=== PATIENT | female | born 1950 | race Caucasian/White ===

== ENCOUNTER 2020-12-28 06:30 | Day surgery (SDC) | payer OTHER ==
[2020-12-27 12:34] LABS: Absolute Lymphocytes (CBC) 1.7 K/uL (0.7-4.9); Basophils % 0.5 % (0-1.3); Hematocrit 41.7 % (36.0-45.0); Lymphocytes % 16.6 % (15.3-44.8); MPV 12.4 fL (7.6-11.3); RBC Red Blood Cell Count 4.54 M/uL (3.86-4.86)
[2020-12-27 12:46] LABS: Protime INR 0.94
[2020-12-27 12:47] LABS: Potassium 4.3 mmol/L (3.5-5.1)
--- NOTE | 2020-12-27 14:46 | RAD REPORT ---
EXAM DESCRIPTION: Chato Salinas (2 Views)12/27/2020 12:58 pm CLINICAL HISTORY: Hypertension/cardiac catheterization preop COMPARISON: 2012 FINDINGS: The lungs appear clear of acute infiltrate. The heart is normal size IMPRESSION: No acute abnormalities displayed
[2020-12-28] MEDS ORDERED: NA CHLORIDE 0.9% 500 ML ONE (07:16)
[2020-12-28] MEDS ORDERED: MIDAZOLAM HCL 2 MG/2 ML INJ ONE ×2 (07:37→07:51)
[2020-12-28] MEDS ORDERED: NA CHLORIDE 0.9% 50 ML ONE (07:38)
[2020-12-28] MEDS ORDERED: FENTANYL CITR 100 MCG/2 ML ONE ×2 (07:38→07:51)
[2020-12-28] MEDS ORDERED: PRASUGREL (EFFIENT) 10 MG TAB ONE (08:22)
[2020-12-28 10:04] VITALS: TEMP 97.3
--- NOTE | 2020-12-28 12:02 | OP ---
Surgeon: Dallas Angel MD Gristmiller: Miguel Cervantes. The patient was brought to the cardiac cath lab technologist today as an outpatient because of chest pain and abnormal str ess test. In the cardiac cath lab technologist, she was prepped and draped in routine sterile fashion. Given Versed and fentanyl for sedation. A 6-Upper Sorbian sheath was introduced in the right common femoral artery [facility]. We did that using the Seldinger technique and 10 cc of xylocaine. Angiography there was normal . Angio-Seal was used to close the case. Tesfaye catheter; left and right were used to cannulate th e left main and right main respectively. She was found to have a normal RCA. She was found to have a normal circumflex, but she had about an 80% proximal LAD stenosis before the first diagonal. It wa s heavily calcified. We decided to intervene. An XB 3.5 LAD without side holes were used to cannula te the left main. A [place] wire was used to cross the lesion successfully. There was 0.014 wire. A 3.0 x 16 Synergy stent was deployed at 14 atmosphere with about 10% to 20% residual in the lesion at the mid circumflex. We decided to post dilate. A 3.0 x 12 noncompliant Emerge balloon was used to post dilate the stent at 18 atmosphere with 0% residual. The patient tolerated the procedure well. There were no complications. Blood Loss: 5 mL. Anesthesia: Total conscious sedation was 60 minutes. Postoperative Diagnosis: Coronary artery disease status post successful intervention of the LAD. The patient received aspirin, Angiomax, Effient during the procedure. Plan: To continue her medical regimen at home. We will probably increase her statin. We will put h er on Plavix in addition to her regular medication. She will be in the hospital for about 6-8 hours after the procedure and she will go home today and follow up in the office in the next 2 weeks. CRISTINA/DEVANG Voice ID: [id number] Report ID: [id number]
[2020-12-28 14:49] VITALS: O2SAT 100
--- NOTE | 2020-12-28 15:03 | EKG ---
Test Date: 2020-12-27 Test Time: 10:53:13 Affiliate Marketing Manager: MEASUREMENT RESULTS: Intervals: Rate: 71 KS: 138 QRSD: 74 QT: 384 QTc: 417 [place]: P: 47 KS: 138 QRS: -14 T: 41 INTERPRETIVE STATEMENTS: Normal sinus rhythm Minimal voltage criteria for LVH, may be normal variant Borderline ECG Compared to ECG 08/05/2013 13:06:07 No significant changes Electronically Signed On 12-28-20 15:01:57 CDT by Dallas Angel
[2020-12-28 15:37] VITALS: BP 138/54
== END 2020-12-28 15:35 | disposition home or self-care (01) ==
LOC: CCL 06:30
DX: I25.10 Atherosclerotic heart disease of native coronary artery without angina pectoris (principal); I35.1 Nonrheumatic aortic (valve) insufficiency; I10 Essential (primary) hypertension; E78.2 Mixed hyperlipidemia; K21.9 Gastro-esophageal reflux disease without esophagitis; Z82.49 Family history of ischemic heart disease and other diseases of the circulatory system
CPT/HCPCS: 93005; 85025; 80048; 36415; 85610; 85347 ×3; 85730; 71046; 93454; C1893; C1760; C1725; C1877; C9600; J2250 ×2; J3010; J0583; J7040

== ENCOUNTER 2022-11-20 00:39 | Emergency (ER) | payer OTHER ==
--- OUTSIDE RECORDS SUMMARY | 2022-11-20 00:43 | XMS REPORT | Continuity of Care Document ---
:1950 Author Organization [facility] t Address [address] [place] [address] Care Team Providers Name Role Phone DONNY HOUSE Primary Care Physician Unavailable JIMMY CARLOS Attending Clinician Unavailable Breanna HUMAN RESOURCES COORDINATORJimmy Chappell Attending Clinician RADIOLOGY Attending Clinician Unavailable Radiology Attending Clinician Unavailable CHRKERRY_Lux Attending Clinician Unavailable Doctor Unassigned, [place] Attending Clinician Unavailable Alley Vasquez MD Attending Clinician ALLEY VASQUEZ Attending Clinician Unavailable Noé Good Attending Clinician Noé SOLIMAN Attending Clinician Unavailable JIMMY CARLOS Admitting Clinician Unavailable DONNY HOUSE Admitting Clinician Unavailable NOEMÍ Admitting Clinician Unavailable Noé SOLIMAN Admitting Clinician Unavailable Payers Payer Name Policy Type Policy Number Effective Date Expiration Date S arpan [facility] [id number] 2020 [facility] 00:00:00 PPO [id number] 2021 00:00:00 [facility] [id number] (MEDICARE REPLACEMENT/[place] GE - PPO) Problems Condition Condition Condition Status Onset Resolution Last Treating Co mments Source Name Details Category Date Date Treatment Clinician Date No known No known Disease Unive rs active active ity of problems problems [facility] Allergies, Adverse Reactions, Alerts Allergy Allergy Status Severity Reaction(s) Onset Inactive Treating Comm ents Source Name Type Date Date Clinician NO KNOWN Drug Active Univers ALLERGIE Class ity of S [facility] Social History Social Habit Start Date Stop Date Quantity Comments Source Exposure to 2022-07-15 2022-07-25 [facility]event) [place] Alcohol intake 2022-07-25 2022-07-25 Lifetime University of 00:00:00 00:00:00 non-drinker [facility] (finding) [place] Tobacco use and 2021-09-30 2021-09-30 Smokeless tobacco Un iversity of exposure 00:00:00 00:00:00 non-user [facility] Sex Assigned At [birth year] Universit y of 00:00:00 00:00:00 [facility] Smoking Status Start Date Stop Date Source Never smoked tobacco [facility] Medications Ordered Filled Start Stop Current Ordering Indication Dosage Frequency Signature Comments Components Source Medication Medication Date Date Medication? Clinician (SIG) Name Name dexamethaso 2021-10 No 10mg 10 mg, Uni vers ne 0-07-25 Oral, ity of (DECADRON 16:15: 16:15 [place]CE, [place] 00 :00 dose, On Medic al injection Fri Branch 10 mg 07/25/22 at 1115, Routine ketorolac 2021-10 No 30mg 30 mg, Unive rs (TORADOL) 0-07-25 Intramuscu ity of injection 16:15: 15:20 lar, ONCE, [place] 30 mg 00 :00 1 dose, On Medical Fri Branch 07/25/22 at 1115, Routine ibuprofen 2021-10 Yes [id number] 600mg Take 1 Univers 600 mg 0-21 tablet by ity of tablet 00:00: mouth [place] 00 every 6 Medical (six) Branch hours as needed for Pain (scale 4-6). ondansetron 2020-10 Yes [id number] 4mg Take 1 Univers 4 mg 2-25 tablet by ity of disintegrat 00:00: mouth [place] ing tablet 00 every 4 Medica l (four) Branch hours as needed for Nausea and Vomiting (N/V). ondansetron 2020-10 Yes [id number] 4mg Take 1 Univers 4 mg 2-25 tablet by ity of disintegrat 00:00: mouth [place] ing tablet 00 every 4 Medica l (four) Branch hours as needed for Nausea and Vomiting (N/V). ondansetron 2020-10 Yes [id number] 4mg Take 1 Univers 4 mg 2-25 tablet by ity of disintegrat 00:00: mouth [place] ing tablet 00 every 4 Medica l (four) Branch hours as needed for Nausea and Vomiting (N/V). ondansetron 2020-10 Yes [id number] 4mg Take 1 Univers 4 mg 2-25 tablet by ity of disintegrat 00:00: mouth [place] ing tablet 00 every 4 Medica l (four) Branch hours as needed for Nausea and Vomiting (N/V). ondansetron 2020-10 Yes [id number] 4mg Take 1 Univers 4 mg 2-25 tablet by ity of disintegrat 00:00: mouth [place] ing tablet 00 every 4 Medica l (four) Branch hours as needed for Nausea and Vomiting (N/V). ondansetron 2020-10 Yes [id number] 4mg Take 1 Univers 4 mg 2-25 tablet by ity of disintegrat 00:00: mouth [place] ing tablet 00 every 4 Medica l (four) Branch hours as needed for Nausea and Vomiting (N/V). ondansetron 2020-10 Yes [id number] 4mg Take 1 Univers 4 mg 2-25 tablet by ity of disintegrat 00:00: mouth [place] ing tablet 00 every 4 Medica l (four) Branch hours as needed for Nausea and Vomiting (N/V). ondansetron 2020-10 Yes [id number] 4mg Take 1 Univers 4 mg 2-25 tablet by ity of disintegrat 00:00: mouth [place] ing tablet 00 every 4 Medica l (four) Branch hours as needed for Nausea and Vomiting (N/V). ondansetron 2020-10 Yes [id number] 4mg Take 1 Univers 4 mg 2-25 tablet by ity of disintegrat 00:00: mouth [place] ing tablet 00 every 4 Medica l (four) Branch hours as needed for Nausea and Vomiting (N/V). ondansetron 2020-10 Yes [id number] 4mg Take 1 Univers 4 mg 2-25 tablet by ity of disintegrat 00:00: mouth [place] ing tablet 00 every 4 Medica l (four) Branch hours as needed for Nausea and Vomiting (N/V). ondansetron 2020-10 Yes [id number] 4mg Take 1 Univers 4 mg 2-25 tablet by ity of disintegrat 00:00: mouth [place] ing tablet 00 every 4 Medica l (four) Branch hours as needed for Nausea and Vomiting (N/V). Vital Signs Vital Name Observation Time Observation Value Comments Source Heart rate 2022-07-25 16:01:26 57 /min Universi ty of [facility] Respiratory rate 2022-07-25 16:01:26 16 /min [facility] saturation in 2022-07-25 16:01:26 98 /min [facility] blood by [facility] Pulse oximetry Branch Systolic blood 2022-07-25 16:01:26 180 mm[Hg] Univer sity of [facility] Diastolic blood 2022-07-25 16:01:26 52 mm[Hg] [facility] Body temperature 2022-07-25 14:50:00 36.89 Elva [facility] Body height 2022-07-25 14:50:00 162.6 cm Universi ty [facility] Body weight 2022-07-25 14:50:00 68.04 kg Universi ty [facility] BMI 2022-07-25 14:50:00 25.75 kg/m2 Universi [facility] Systolic blood 2021-11-28 15:22:00 166 mm[Hg] Univer sity of [facility] Diastolic blood 2021-11-28 15:22:00 69 mm[facility]Hg[facility] 2021-11-28 15:21:00 65 /min Universi ty [facility] Body height 2021-11-28 15:21:00 162.6 cm Universi [facility] Body weight 2021-11-28 15:21:00 73.437 kg Universi ty [facility] BMI 2021-11-28 15:21:00 27.79 kg/m2 [facility] Oxygen saturation in 2021-11-28 15:21:00 99 /min University Arterial blood by [facility] Pulse oximetry Branch Procedures Procedure Date / Time Performed Performing Clinician Sourramya e CT LUMBAR SPINE WO 2022-07-25 15:47:09 Jimmy Carlos [facility] [place] [facility] Medical [facility] URINALYSIS 2022-07-25 15:18:00 Jimmy Carlos [facility] [place] [facility] CONSENT/REFUSAL FOR 2022-07-25 14:40:18 Doctor Unassigned, No Un iversity [facility] DIAGNOSIS AND Name Medical Branch TREATMENT XR LUMBAR SPINE 2 VW 2022-07-24 15:49:23 Donny House [facility] ity of [facility] EXTERNAL PROVIDER 2022-02-28 05:01:00 Doctor Unassigned, No [facility] [place] RECORDS Name Medical Branch PHYSICIAN ORDERS 2022-01-29 05:01:00 Doctor Unassigned, No [facility] [place] Name Medical Branch PHYSICIAN ORDERS 2021-12-30 05:01:00 Doctor Unassigned, No Unive rsity of [facility] Medical Branch REFERRAL- 2021-11-14 06:01:00 Doctor Unassigned, No Univer sity [facility] REQUEST/RESPONSE Name Medical Branch Encounters Start End Encounter Admission Attending Care Care Encounter Source Date/Time Date/Time Type Type Clinicians Facility Department ID 2022-07-25 2022-07-25 Emergency X BREANNA [facility] ERT [id number] Univers 09:47:00 11:56:00 JIMMY ity of [facility] 2022-07-25 2022-07-25 [facility] 1.2.840.114 [id number] Univers 09:47:00 11:56:00 Jimmy GRANT [id number] ity [facility] 4.2.7.2.686 [facility] [id number] [facility] 084 Branch 2022-07-24 2022-07-24 Outpatient R RADIOLOGY [facility] [id number] Univers 09:59:25 23:59:00 ity of [facility] 2022-07-24 2022-07-24 Hospital Radiology [facility] 1.2.840.114 [id number] Univers 09:59:25 23:59:00 Encounter [place] [id number] ity [facility] 4.2.7.2.686 [place] [id number] [facility] [address] [place] 2022-07-21 2022-07-21 Outpatient CHRETIEN_F [facility] [id number] [place] 00:00:00 00:00:00 1017 Commun i ty [facility]osp[facility] Clinics 2022-02-28 2022-02-28 Orders Doctor NANCI 1.2.840.114 [id number] Univers 00:00:00 00:00:00 Only Unassigned, JONNY 350.1.13.10 ity of [place] [facility] 4.2.7.2.686 Lonny as [id number] [address] 2022-02-19 2022-02-19 Telephone [facility] 1.2.840.114 [id number] Univers 00:00:00 00:00:00 BioSurplus [id number] it y [facility] 4.2.7.2.686 Lonny as OBED?BLEA [id number] [facility] [address] [place] MEDICAL OFFICE BUILDING 2022-01-29 2022-01-29 Orders Doctor NANCI 1.2.840.114 [id number] Univers 00:00:00 00:00:00 Only Unassigned, JONNY 350.1.13.10 ity of [place] [facility] 4.2.7.2.686 Lonny as [id number] [address] 2022-01-24 2022-01-24 Telephone [facility] 1.2.840.114 [id number] Univers 00:00:00 00:00:00 [employer]plus [id number] it y [facility] 4.2.7.2.686 Lonny as OBED?BLEA [id number] [facility] [address] [place] MEDICAL OFFICE BUILDING 2021-12-30 2021-12-30 Orders Doctor NANCI 1.2.840.114 [id number] Univers 00:00:00 00:00:00 Only Unassigned, JONNY 350.1.13.10 ity of [place] [facility] 4.2.7.2.686 Lonny as [id number] [address] 2021-12-27 2021-12-27 Telephone [facility] 1.2.840.114 [id number] Univers 00:00:00 00:00:00 Alley VELASQUEZ 350.1.13.10 it y of [place] 4.2.7.2.686 Lonny as OBED?BLEA [id number] [place] [address] [place] MEDICAL OFFICE [facility] 2021-12-03 2021-12-03 Telephone [facility] 1.2.840.114 [id number] Univers 00:00:00 00:00:00 Alley VELASQUEZ 350.1.13.10 it y of [place] 4.2.7.2.686 Lonny as OBED?BLEA [id number] [place] [address] [place] MEDICAL OFFICE [facility] 2021-11-28 2021-11-28 [facility] [id number] Univers 09:25:00 23:59:00 [facility] 2021-11-28 2021-11-28 Office [facility] [id number] Univers 09:30:00 12:14:10 Visit Alley VELASQUEZ 350.1.13.10 it y [facility] 4.2.7.2.686 Lonny as OBED?BLEA [id number] [place] [address] [facility] OFFICE [facility] 2021-11-28 2021-11-28 [facility] [id number] Univers 09:25:00 09:25:00 [facility] 2021-11-14 2021-11-14 Orders Doctor CHRISTINE 1.2.840.114 [id number] Univers 00:00:00 00:00:00 Only Unassigned, JONNY 350.1.13.10 ity of [place] [facility] 4.2.7.2.686 Lon[place] as [id number] [address] 2021-10-31 2021-10-31 [facility] [id number] Univers 10:00:00 23:59:00 [facility] 2021-10-31 2021-10-31 [facility] 1.2.840.114 [id number] Univers 10:00:00 23:59:00 Encounter Alley VELASQUEZ 350.1.13.10 ity of [place] 4.2.7.2.686 Lonny as OBED?BLEA [id number] [place] [address] [place] MEDICAL OFFICE [facility] 2021-10-31 2021-10-31 Office [facility] [id number] Univers 09:30:00 10:32:19 Visit Alley VELASQUEZ 350.1.13.10 it y of [place] 4.2.7.2.686 Lonny as OBED?BLEA [id number] [place] [address] [facility] OFFICE [facility] 2021-10-31 2021-10-31 [facility] [id number] Univers 09:30:00 10:32:19 [facility] 2021-09-30 2021-09-30 Outpatient R [facility] [id number] Univers 16:10:00 23:59:00 [facility] 2021-09-30 2021-09-30 [facility] 1.2.840.114 [id number] Univers 16:10:00 23:59:00 Encounter Alley VELASQUEZ 350.1.13.10 ity of [place] 4.2.7.2.686 Lonny as OBED?BLEA [id number] [place] [address] [facility] OFFICE [facility] 2021-09-30 2021-09-30 Office [facility] [id number] Univers 15:30:00 17:07:21 Visit Alley VELASQUEZ 350.1.13.10 it y of [place] 4.2.7.2.686 Lonny as OBED?BLEA [id number] [place] [address] [facility] OFFICE [facility] 2021-09-30 2021-09-30 [facility] [id number] Univers 15:30:00 17:07:21 [facility] 2021-09-27 2021-09-28 Emergency Noé Soliman [facility] 1.2.840.114 [id number] Univers 23:46:00 02:20:00 Anay GRANT 350.1.13.10 i [facility] 4.2.7.2.686 [facility] [id number] [address] 2021-09-27 2021-09-28 Emergency X Noé SOLIMAN [facility] ERT [id number] Univers 23:46:00 02:20:00 ity [facility] 2021-09-27 2021-09-28 Emergency X Noé SOLIMAN [facility] ERT [id number] Univers 23:46:00 02:20:00 [facility] 2017-04-21 2017-04-21 Outpatient MHIE MHIE [id number] [place] 10:30:00 10:30:00 05 natalya Bah 2017-04-21 2017-04-21 Outpatient MHIE MHIE [id number] [place] 10:30:00 10:30:00 05 natalya Bah 2016-11-25 2016-11-25 Outpatient MHIE MHIE [id number] [place] 10:30:00 10:30:00 04 natalya Bah 2016-11-25 2016-11-25 Outpatient MHIE MHIE [id number] [place] 10:30:00 10:30:00 04 natalya Bah 2016-06-17 2016-06-17 Outpatient MHIE MHIE [id number] [place] 10:45:00 10:45:00 03 natalya Bah 2016-06-17 2016-06-17 Outpatient MHIE MHIE [id number] [place] 10:45:00 10:45:00 03 natalya Bah 2016-04-18 2016-04-18 Outpatient MHIE MHIE [id number] [place] 10:45:00 10:45:00 02 natalya Bah 2016-04-18 2016-04-18 Outpatient MHIE MHIE [id number] [place] 10:45:00 10:45:00 02 natalya Bah 2015-10-25 2015-10-25 Outpatient MHIE MHIE [id number] [place] 10:45:00 10:45:00 01 natalya Bah 2015-10-25 2015-10-25 Outpatient MHIE MHIE [id number] [place] 10:45:00 10:45:00 01 natalya Bah 2015-06-14 2015-06-[address] [facility] [id number] 10:30:00 10:30:00 00 natalya Bah 2015-06-14 2015-06-[address] [facility] [id number] [facility] 10:30:00 10:30:00 00 natalya Bah Results This patient has no known results.
[2022-11-20 02:05] LABS: Absolute Lymphocytes (CBC) 1.6 K/uL (0.7-4.9); Hematocrit 37.8 % (36.0-45.0); Lymphocytes % 16.1 % (15.3-44.8); MCV 88.6 fL (80-100); MPV 10.9 fL (7.6-11.3); RBC Red Blood Cell Count 4.27 M/uL (3.86-4.86)
[2022-11-20 02:23] LABS: Potassium 3.7 mmol/L (3.5-5.1); Troponin High Sensitivity 8.9 pg/mL (<58.9)
--- NOTE | 2022-11-20 03:35 | EDPHYS ---
Physician Documentation [facility] Name: Radha Christianson Age: 72 yrs Sex: Female : 1950 Arrival Date: 11/20/2022 Time: 00:44 Bed 18 Private MD: ED Physician Suhas Mcguire HPI: 11/20 03:43 This 72 yrs old Female presents to ER via Wheelchair with complaints of High Blood kdr Pressure. 03:43 Patient states that since Thursday she has had high blood pressure with a systolic over kdr 200 from time to time. She saw her primary care (Dr. Ruff) on Thursday and had a medication change. Since then she has had some improvement but this evening noted that her pressure again was over 200 at home. She has had approximately 5 doses of the new medication regiment prescribed by Dr. Ruff. She denies any overt signs or symptoms of endorgan damage such as headache, chest pain, shortness of breath, back or pelvic pain. She otherwise has no focal complaint. She does not appear toxic and does not require emergent intervention on initial presentation. Onset: The symptoms/episode began/occurred gradually, 3 day(s) ago. Severity of symptoms: At their worst the symptoms were mild in the emergency department the symptoms are unchanged. The patient has not experienced similar symptoms in the past. The patient has been recently seen by a physician: the patient's primary care provider, Dr. Ruff. Historical: - Allergies: 00:58 No Known Allergies; kd3 - PMHx: 00:58 Hypertensive disorder; stent; Diverticulitis; breast cancer; kd3 01:00 acid reflux; herniated disc; kd3 - Immunization history:: Adult Immunizations up to date. - Social history:: Smoking status: Patient denies any tobacco usage or history of. ROS: 03:43 Constitutional: Negative for fever, chills, and weight loss, Eyes: Negative for injury, kdr pain, redness, and discharge, ENT: Negative for injury, pain, and discharge, Neck: Negative for injury, pain, and swelling, Cardiovascular: Negative for chest pain, palpitations, and edema, Respiratory: Negative for shortness of breath, cough, wheezing, and pleuritic chest pain, Abdomen/GI: Negative for abdominal pain, nausea, vomiting, diarrhea, and constipation, Back: Negative for injury and pain, : Negative for injury, bleeding, discharge, and swelling, MS/Extremity: Negative for injury and deformity, Skin: Negative for injury, rash, and discoloration, Neuro: Negative for headache, weakness, numbness, tingling, and seizure activity. Psych: Negative for depression, anxiety, suicide ideation, homicidal ideation, and hallucinations, Allergy/Immunology: Negative for hives, rash, and allergies, Endocrine: Negative for neck swelling, polydipsia, polyuria, polyphagia, and marked weight changes, Hematologic/Lymphatic: Negative for swollen nodes, abnormal bleeding, and unusual bruising. Exam: 03:43 Constitutional: This is a well developed, well nourished patient who is awake, alert, kdr and in no acute distress. Head/Face: Normocephalic, atraumatic. Eyes: Pupils equal round and reactive to light, extra-ocular motions intact. Lids and lashes normal. Conjunctiva and sclera are non-icteric and not injected. Cornea within normal limits. Periorbital areas with no swelling, redness, or edema. Neck: Trachea midline, no thyromegaly or masses palpated, and no cervical lymphadenopathy. Supple, full range of motion without nuchal rigidity, or vertebral point tenderness. No Meningismus. Chest/axilla: Normal chest wall appearance and motion. Nontender with no deformity. No lesions are appreciated. Cardiovascular: Regular rate and rhythm with a normal S1 and S2. No gallops, murmurs, or rubs. Normal PMI, no JVD. No pulse deficits. Respiratory: Lungs have equal breath sounds bilaterally, clear to auscultation and percussion. No rales, rhonchi or wheezes noted. No increased work of breathing, no retractions or nasal flaring. Abdomen/GI: Soft, non-tender, with normal bowel sounds. No distension or tympany. No guarding or rebound. No evidence of tenderness throughout. Back: No spinal tenderness. No costovertebral tenderness. Full range of motion. Skin: Warm, dry with normal turgor. Normal color with no rashes, no lesions, and no evidence of cellulitis. MS/ Extremity: Pulses equal, no cyanosis. Neurovascular intact. Full, normal range of motion. Neuro: Awake and alert, GCS 15, oriented to person, place, time, and situation. Cranial nerves II-XII grossly intact. Motor strength 5/5 in all extremities. Sensory grossly intact. Cerebellar exam normal. Normal gait. Psych: Awake, alert, with orientation to person, place and time. Behavior, mood, and affect are within normal limits. 03:43 Cardiovascular: Edema: 2+ edema to level of left midcalf, left ankle, left foot, left toes, right midcalf, right ankle, right foot and right toes. Vital Signs: 00:53 BP 195 / 62; Pulse 73; Resp 16; Temp 98.2(O); Pulse Ox 100% ; Weight 68.04 kg; Height 5 kd3 ft. 4 in. (162.56 cm); Pain 0/10; 02:04 BP 174 / 65; Pulse 63; Resp 14; Pulse Ox 98% on R/A; lg3 02:36 BP 161 / 55; Pulse 63; Resp 15 S; Pulse Ox 99% on R/A; lg3 04:03 BP 161 / 57; Pulse 64; Resp 17 S; Pulse Ox 99% on R/A; lg3 00:53 Body Mass Index 25.75 (68.04 kg, 162.56 cm) kd3 MDM: 03:34 Patient medically screened. kdr 03:43 Data reviewed: vital signs, nurses notes. Consideration of Admission/Observation kdr Patient was admitted/placed on observation. Patient continues to be asymptomatic in the ED and improved overall in her general sense of wellbeing. Her blood pressure also improved with a systolic of 155 at the time of discharge. 11/20 01:14 Order name: Basic Metabolic Panel; Complete Time: 02:53 kdr 11/20 01:14 Order name: CBC with Diff; Complete Time: 02:53 kdr 11/20 01:14 Order name: Troponin HS; Complete Time: 02:53 kdr 11/20 01:14 Order name: XRAY Chest (1 view) kdr 11/20 01:14 Order name: EKG; Complete Time: 01:15 kdr 11/20 01:14 Order name: Cardiac monitoring; Complete Time: 01:26 kdr 11/20 01:14 Order name: EKG - Nurse/Tech; Complete Time: 02:04 kdr 11/20 01:14 Order name: IV Saline Lock; Complete Time: 01:50 kdr 11/20 01:14 Order name: Labs collected and sent; Complete Time: 02:04 kdr 11/20 01:14 Order name: O2 Per Protocol; Complete Time: kdr 11/20 01:14 Order name: O2 Sat Monitoring; Complete Time: kdr Administered Medications: No medications were administered Disposition Summary: 11/20/22 03:34 Discharge Ordered Location: Home kdr Problem: an acute exacerbation kdr Symptoms: have improved kdr Condition: Stable kdr Diagnosis - Hypertensive heart disease without heart failure kdr Followup: kdr - With: Kassie Ruff MD - When: Today - Reason: If symptoms return, Further diagnostic work-up, Recheck today's complaints, Continuance of care, Re-evaluation by your physician Discharge Instructions: - Discharge Summary Sheet kdr - Hypertension, Adult, [id number] kdr Forms: - Medication Reconciliation Form kdr - Thank You Letter kdr Signatures: Dispatcher [employer] Suhas Jernigan MD MD kdr Haydee Salazar, RN RN kd3
--- NOTE | 2022-11-20 03:35 | ER ---
Nurse's Notes [facility] Name: Radha Christianson Age: 72 yrs Sex: Female : 1950 Arrival Date: 11/20/2022 Time: 00:44 Bed 18 Private MD: Diagnosis: Hypertensive heart disease without heart failure Presentation: 11/20 00:54 Chief complaint: Patient states: on Thursday morning i started to feel weird and my blood kd3 pressure was in the 200's. I got an appointment with Dr Ruff Thursday afternoon and he changed some of my blood pressure medications. I went home and a couple times since then i have had a blood pressure over 200. Today i called the ambulance and they advised me to come here to get checked out. Right now i don't feel quite right. Coronavirus screen: Vaccine status: Patient reports being unvaccinated. Ebola Screen: No symptoms or risks identified at this time. Initial Sepsis Screen: Does the patient meet any 2 criteria? No. Patient's initial sepsis screen is negative. Does the patient have a suspected source of infection? No. Patient's initial sepsis screen is negative. Risk Assessment: Do you want to hurt yourself or someone else? Patient reports no desire to harm self or others. Onset of symptoms was November 20, 2022. 00:54 Method Of Arrival: Wheelchair kd3 00:54 Acuity: JACINTO 3 kd3 Triage Assessment: 01:00 General: Appears in no apparent distress. Behavior is calm, cooperative. Pain: Denies kd3 pain. Historical: - Allergies: 00:58 No Known Allergies; kd3 - PMHx: 00:58 Hypertensive disorder; stent; Diverticulitis; breast cancer; kd3 01:00 acid reflux; herniated disc; kd3 - Immunization history:: Adult Immunizations up to date. - Social history:: Smoking status: Patient denies any tobacco usage or history of. Screenin:51 Abuse screen: Denies threats or abuse. Denies injuries from another. Nutritional ha1 screening: No deficits noted. Tuberculosis screening: No symptoms or risk factors identified. 02:07 [facility] ED Fall Risk Assessment (Adult) History of falling in the last 3 months, lg3 including since admission No falls in past 3 months (0 pts) Confusion or Disorientation No (0 pts). Assessment: 02:04 General: Appears in no apparent distress. comfortable, Behavior is calm, cooperative. lg3 Pain: Denies pain. Neuro: No deficits noted. Thurston Agitation-Sedation Scale (RASS): 0 - Alert and Calm Level of Consciousness is awake, alert, obeys commands, Oriented to person, place, time, situation. Cardiovascular: No deficits noted. Denies chest pain, shortness of breath, Capillary refill < 3 seconds Clubbing of nail beds is absent JVD is absent Patient's skin is warm and dry. Rhythm is sinus rhythm. Respiratory: No deficits noted. Airway is patent Trachea midline Respiratory effort is even, unlabored, Respiratory pattern is regular, symmetrical, Breath sounds are clear bilaterally. GI: No deficits noted. No signs and/or symptoms were reported involving the gastrointestinal system. Abdomen is round non-distended. : No deficits noted. No signs and/or symptoms were reported regarding the genitourinary system. EENT: No deficits noted. No signs and/or symptoms were reported regarding the EENT system. Derm: No deficits noted. No signs and/or symptoms reported regarding the dermatologic system. Skin is intact, is healthy with good turgor, Skin is dry, Skin is normal, Skin temperature is warm. Musculoskeletal: Circulation, motion, and sensation intact. Range of motion: intact in all extremities, Swelling present in right leg and left leg. Vital Signs: 00:53 BP 195 / 62; Pulse 73; Resp 16; Temp 98.2(O); Pulse Ox 100% ; Weight 68.04 kg; Height 5 kd3 ft. 4 in. (162.56 cm); Pain 0/10; 02:04 BP 174 / 65; Pulse 63; Resp 14; Pulse Ox 98% on R/A; lg3 02:36 BP 161 / 55; Pulse 63; Resp 15 S; Pulse Ox 99% on R/A; lg3 04:03 BP 161 / 57; Pulse 64; Resp 17 S; Pulse Ox 99% on R/A; lg3 00:53 Body Mass Index 25.75 (68.04 kg, 162.56 cm) kd3 ED Course: 00:44 Patient arrived in ED. ja2 00:55 Suhas Mcguire MD is Attending Physician. kdr 00:58 Triage completed. kd3 01:00 Arm band placed on left wrist. kd3 01:05 Taveras, Lynette, RN is Primary Nurse. lg3 01:36 XRAY Chest (1 view) In Process Unspecified. EDMS 01:40 Missed attempt(s): 20 gauge in left antecubital area. ha1 01:45 Inserted saline lock: 22 gauge in left forearm, using aseptic technique. ha1 02:07 Patient has correct armband on for positive identification. Placed in gown. Bed in low lg3 position. Call light in reach. Side rails up X 1. Client placed on continuous cardiac and pulse oximetry monitoring. NIBP monitoring applied. habitat biologist on. Door closed. Noise minimized. Warm blanket given. Family accompanied patient. 03:34 Kassie Ruff MD is Referral Physician. kdr 04:04 No provider procedures requiring assistance completed. IV discontinued, intact, lg3 bleeding controlled, No redness/swelling at site. Pressure dressing applied. Administered Medications: No medications were administered Medication: 02:07 VIS not applicable for this client. lg3 Outcome: 03:34 Discharge ordered by MD. kdr 04:04 Discharged to home ambulatory, with family. lg3 04:04 Condition: stable 04:04 Discharge instructions given to patient, Instructed on discharge instructions, follow up and referral plans. Demonstrated understanding of instructions, follow-up care. 04:04 Patient left the ED. lg3 Signatures: Dispatcher [employer] EDMS Suhas Mcguire MD MD kdr Lynette Taveras, RN RN lg3 Ora Bacon Kyli, RN RN kd3 Sis [place] RN RN ha1
[2022-11-20 04:11] VITALS: TEMP 98.2
[2022-11-20 04:13] VITALS: O2SAT 99
[2022-11-20 04:14] VITALS: BP 161/57
--- NOTE | 2022-11-20 11:51 | EKG ---
Test Date: 2022-11-20 Test Time: 02:01:55 Hogshead Liner: LAURA MEASUREMENT RESULTS: Intervals: Rate: 64 CA: 146 QRSD: 76 QT: 416 QTc: 429 Cord: P: 32 CA: 146 QRS: -22 T: 18 INTERPRETIVE STATEMENTS: Normal sinus rhythm Voltage criteria for left ventricular hypertrophy Abnormal ECG Compared to ECG 12/27/2020 10:53:13 No significant changes Electronically Signed On 11-20-22 11:50:48 BRICK [employer]ENEER MAKER by Dago Adams
--- NOTE | 2022-11-20 15:04 | RAD REPORT ---
EXAM DESCRIPTION: XR Chest, 1 View CLINICAL HISTORY: The patient is 72 years old and is Female; dizziness TECHNIQUE: Frontal view of the chest. COMPARISON: 10/19/2020 chest radiograph FINDINGS: LUNGS: Hazy medial right basilar opacities, atelectasis versus pneumonia. No other foca l consolidation. PLEURAL SPACE: No pleural effusion. No pneumothorax. HEART: See below. MEDIASTINUM: Prominence of the cardiomediastinal silhouette, likely exaggerated secondary to sarah ble technique, lordotic positioning, and patient body habitus. BONES/JOINTS: Dystrophic appearance of the right humeral neck, new from reference exam, favoring an age-indeterminate impacted fracture. IMPRESSION: 1. Hazy medial right basilar opacities, atelectasis versus pneumonia. No other focal c onsolidation. 2. Dystrophic appearance of the right humeral neck, favoring an age-indeterminate but presumably re mote fracture. Clinical correlation recommended. Electronically signed by: Ramiro Reyna MD 11/20/2022 1:54 AM SALES APPOINTMENT COORDINATOR Due to temporary technical issues with the PACS/Fluency reporting system, reports are being signed by the in house radiologists without review as a courtesy to insure prompt reporting. The interpreting radiologist is fully responsible for the content of the report.
== END 2022-11-20 04:04 | disposition home or self-care (01) ==
LOC: ER 00:39
DX: I11.9 Hypertensive heart disease without heart failure (principal); Z85.3 Personal history of malignant neoplasm of breast
CPT/HCPCS: 36415; 71045; 80048; 84484; 85025; 93005; 99284

== ENCOUNTER 2023-07-30 18:19 | Observation (INO) | payer OTHER ==
--- OUTSIDE RECORDS SUMMARY | 2023-07-30 19:21 | XMS REPORT | Continuity of Care Document ---
:1950 Author Organization [facility] t Address [address] [place] [address] [place] [id number] Care Team Providers Name Role Phone Abdi House Primary Care Physician Wiley Du Attending Clinician WILEY BAEZA Attending Clinician Unavailable Unknown, Attending Attending Clinician Unavailable Doctor Unassigned, [place] Attending Clinician Unavailable JIMMY CARLOS Attending Clinician Unavailable Jimmy Hearn Attending Clinician RADIOLOGY Attending Clinician Unavailable Radiology Attending Clinician Unavailable NOEMÍ Attending Clinician Unavailable Alley Vasquez MD Attending Clinician ALLEY VASQUEZ Attending Clinician Unavailable Noé Good Attending Clinician Noé SOLIMAN Attending Clinician Unavailable JIMMY CARLOS Admitting Clinician Unavailable ABDI HOUSE Admitting Clinician Unavailable NOEMÍ Admitting Clinician Unavailable Néo SOLIMAN Admitting Clinician Unavailable Payers Payer Name Policy Type Policy Number Effective Date Expiration Date S [facility] [id number] (MEDICARE REPLACEMENT/ADVANTAGE - PPO) Problems Condition Condition Condition Status Onset Resolution Last Treating Co mments Source Name Details Category Date Date Treatment Clinician Date No known No known Disease Unive rs active active ity of problems problems [facility] Allergies, Adverse Reactions, Alerts Allergy Allergy Status Severity Reaction(s) Onset Inactive Treating Comm ents Source Name Type Date Date Clinician NO KNOWN Drug Active Univers ALLERGIE Class ity of S [facility] Social History Social Habit Start Date Stop Date Quantity Comments Source Sexual orientation [facility] to 2022-11-27 2022-12-07 Not sure [facility]-CoV-2 (event) 00:00:00 09:12:00 [facility] History of Social 2021-09-30 2021-09-30 Univers ity of function 00:00:00 00:00:00 [facility] Tobacco use and 2021-09-30 2021-09-30 Smokeless Universit y of exposure 00:00:00 00:00:00 tobacco non-user [facility] Alcohol intake 2021-09-30 2021-09-30 Lifetime University of 00:00:00 00:00:00 non-drinker [facility] ([facility] [place] Sex Ass[birth year] At [birth year] Universit y of 00:00:00 00:00:00 [facility] Smoking Status Start Date Stop Date Source Never smoked tobacco [facility] Medications Ordered Filled Start Stop Current Ordering Indication Dosage Frequency Signature Comments Components Source Medication Medication Date Date Medication? Clinician (SIG) Name Name metroNIDAZO 2022- No [id number] 500mg Take 1 Univers LE (FLAGYL) 3-07 07-18 tablet by it y of 500 mg 00:00: 04:59 mouth [place] tablet 00 :00 every 12 Medical (twelve) Branch hours for 7 days. cephALEXin 2022- No [id number] 500mg Take 1 Univers 500 mg 12-07 capsule by ity of capsule 00:00: 04:59 mouth in [place] 00 :00 the Medical morning Branch and 1 capsule in the evening. Do all this for 7 days. cephALEXin 2022- No [id number] 500mg Take 1 Univers 500 mg 12-07 capsule by ity of capsule 00:00: 04:59 mouth in [place] 00 :00 the Medical morning Branch and 1 capsule in the evening. Do all this for 7 days. dexamethaso 2021-10- No 10mg 10 mg, Uni vers ne 0-07-25 Oral, ity of (DECADRON 16:15: 16:15 ONCE, 1 [place] PHOS[place] 00 :00 dose, On Medic al injection Fri Branch 10 mg 07/25/22 at 1115, Routine ketorolac 2021-10 30mg 30 mg, Unive rs (TORADOL) 007-25 Intramuscu ity of injection 16:15: 15:20 lar, ONCE, [place] 30 mg 00 :00 1 dose, On Medical Fri Branch 07/25/22 at 1115, Routine ibuprofen 2021-10 Yes [id number] 600mg Take 1 Univers 600 mg 0-21 tablet by ity of tablet 00:00: mouth [place] 00 every 6 Medical (six) Branch hours as needed for Pain (scale 4-6). ibuprofen 2021-10 Yes [id number] 600mg Take 1 Univers 600 mg 0-21 tablet by ity of tablet 00:00: mouth [place] 00 every 6 Medical (six) Branch hours as needed for Pain (scale 4-6). ibuprofen 2021-10 Yes [id number] 600mg Take 1 Univers 600 mg 0-21 tablet by ity of tablet 00:00: mouth [place] 00 every 6 Medical (six) Branch hours as needed for Pain (scale 4-6). ibuprofen 2021-10 Yes [id number] 600mg Take 1 Univers 600 mg 0-21 tablet by ity of tablet 00:00: mouth [place] 00 every 6 Medical (six) Branch hours as needed for Pain (scale 4-6). ondansetron 2020-10 Yes [id number] 4mg Take 1 Univers 4 mg 2-25 tablet by ity of disintegrat 00:00: mouth [place] ing tablet 00 every 4 Medica l (four) Branch hours as needed for Nausea and Vomiting (N/V). ondansetron 2020-10 Yes [id number] 4mg Take 1 Univers 4 mg 2-25 tablet by ity of disintegrat 00:00: mouth [place] ing tablet 00 every 4 Medica l (four) Branch hours as needed for Nausea and Vomiting (N/V). ondansetron 2020-10 Yes [id number] 4mg Take 1 Univers 4 mg 2-25 tablet by ity of disintegrat 00:00: mouth [place] ing tablet 00 every 4 Medica l (four) Branch hours as needed for Nausea and Vomiting (N/V). ondansetron 2020-10 Yes [id number] 4mg Take 1 Univers 4 mg 2-25 tablet by ity of disintegrat 00:00: mouth [place] ing tablet 00 every 4 Medica l (four) Branch hours as needed for Nausea and Vomiting (N/V). ondansetron 2020-10 Yes [id number] 4mg Take 1 Univers 4 mg 2-25 tablet by ity of disintegrat 00:00: mouth [place] ing tablet 00 every 4 Medica l (four) Branch hours as needed for Nausea and Vomiting (N/V). ondansetron 2020-10 Yes [id number] 4mg Take 1 Univers 4 mg 2-25 tablet by ity of disintegrat 00:00: mouth [place] ing tablet 00 every 4 Medica l (four) Branch hours as needed for Nausea and Vomiting (N/V). ondansetron 2020-10 Yes [id number] 4mg Take 1 Univers 4 mg 2-25 tablet by ity of disintegrat 00:00: mouth [place] ing tablet 00 every 4 Medica l (four) Branch hours as needed for Nausea and Vomiting (N/V). ondansetron 2020-10 Yes [id number] 4mg Take 1 Univers 4 mg 2-25 tablet by ity of disintegrat 00:00: mouth [place] ing tablet 00 every 4 Medica l (four) Branch hours as needed for Nausea and Vomiting (N/V). ondansetron 2020-10 Yes [id number] 4mg Take 1 Univers 4 mg 2-25 tablet by ity of disintegrat 00:00: mouth [place] ing tablet 00 every 4 Medica l (four) Branch hours as needed for Nausea and Vomiting (N/V). ondansetron 2020-10 Yes [id number] 4mg Take 1 Univers 4 mg 2-25 tablet by ity of disintegrat 00:00: mouth [place] ing tablet 00 every 4 Medica l (four) Branch hours as needed for Nausea and Vomiting (N/V). ondansetron 2020-10 Yes [id number] 4mg Take 1 Univers 4 mg 2-25 tablet by ity of disintegrat 00:00: mouth [place] ing tablet 00 every 4 Medica l (four) Branch hours as needed for Nausea and Vomiting (N/V). ondansetron 2020-10 Yes [id number] 4mg Take 1 Univers 4 mg 2-25 tablet by ity of disintegrat 00:00: mouth [place] ing tablet 00 every 4 Medica l (four) Branch hours as needed for Nausea and Vomiting (N/V). ondansetron 2020-10 Yes [id number] 4mg Take 1 Univers 4 mg 2-25 tablet by ity of disintegrat 00:00: mouth [place] ing tablet 00 every 4 Medica l (four) Branch hours as needed for Nausea and Vomiting (N/V). ondansetron 2020-10 Yes [id number] 4mg Take 1 Univers 4 mg 2-25 tablet by ity of disintegrat 00:00: mouth [place] ing tablet 00 every 4 Medica l (four) Branch hours as needed for Nausea and Vomiting (N/V). ondansetron 2020-10 Yes [id number] 4mg Take 1 Univers 4 mg 2-25 tablet by ity of disintegrat 00:00: mouth [place] ing tablet 00 every 4 Medica l (four) Branch hours as needed for Nausea and Vomiting (N/V). Vital Signs Vital Name Observation Time Observation Value Comments Source Systolic blood 2022-12-07 15:17:00 187 mm[Hg] [facility] Diastolic blood 2022-12-07 15:17:00 82 mm[Hg] [facility] Heart rate 2022-12-07 15:14:00 74 /min [facility] Body temperature 2022-12-07 15:14:00 37.22 [facility] Respiratory rate 2022-12-07 15:14:00 16 /[facility] height 2022-12-07 15:14:00 162.6 cm [facility] Body weight 2022-12-07 15:14:00 70.308 kg [facility] BMI 2022-12-07 15:14:00 26.61 kg/m2 [facility] Oxygen saturation in 2022-12-07 15:14:00 97 /min [facility] Arterial blood by [facility] Pulse oximetry Branch Systolic blood 2022-07-25 16:01:26 180 mm[Hg] [facility] Diastolic blood 2022-07-25 16:01:26 52 mm[Hg] Unive rsity of pressure [facility] Heart rate 2022-07-25 16:01:26 57 /min Universi ty of [facility] Respiratory rate 2022-07-25 16:01:26 16 /min Univ ersity of [facility] Oxygen saturation in 2022-07-25 16:01:26 98 /min University of Arterial blood by [facility] Pulse oximetry Branch Body temperature 2022-07-25 14:50:00 36.89 [place] Univ ersity of [facility] Body height 2022-07-25 14:50:00 162.6 cm Universi ty of [facility] Body weight 2022-07-25 14:50:00 68.04 kg Universi ty of [facility] BMI 2022-07-25 14:50:00 25.75 kg/m2 Universi ty [facility] Systolic blood 2021-11-28 15:22:00 166 mm[Hg] Univer sity of [facility] Diastolic blood 2021-11-28 15:22:00 69 mm[Hg] Unive rsity of [facility] Heart rate 2021-11-28 15:21:00 65 /min Universi ty of [place] [facility] [place] Body height 2021-11-28 15:21:00 162.6 cm Universi ty of [place] [facility] [place] Body weight 2021-11-28 15:21:00 73.437 kg Universi ty [facility] BMI 2021-11-28 15:21:00 27.79 kg/m2 Universi ty [facility] Oxygen saturation in 2021-11-28 15:21:00 99 /min University of Arterial blood by [facility] Pulse oximetry Branch Procedures Procedure Date / Time Performed Performing Clinician Sourc e POCT URINALYSIS 2022-12-07 15:17:00 Kelly Hernandez o yarely [facility] ASSIGNMENT OF BENEFITS 2022-12-07 15:04:02 Doctor Unassigned, No [facility] CT LUMBAR SPINE WO 2022-07-25 15:47:09 Jimmy [facility] URINALYSIS 2022-07-25 15:18:00 [facility] FOR 2022-07-25 14:40:18 Doctor Unassigned, No Un iversity [facility] [place] [facility] DIAGNOSIS AND Name Medical Branch TREATMENT XR LUMBAR SPINE 2 VW 2022-07-24 15:49:23 Abdi House ity of [facility] EXTERNAL PROVIDER 2022-02-28 05:01:00 Doctor Unassigned, No Univ ersity of [place] RECORDS Name Medical Branch PHYSICIAN ORDERS 2022-01-29 05:01:00 Doctor Unassigned, No Unive rsity of [place] Name Medical Branch PHYSICIAN ORDERS 2021-12-30 05:01:00 Doctor Unassigned, No Unive rsity of [facility] Medical Branch REFERRAL- 2021-11-14 06:01:00 Doctor Unassigned, No Univer sity [facility] [place] [facility] REQUEST/RESPONSE Name Medical [place] Encounters Start End Encounter Admission Attending Care Care Encounter Source Date/Time Date/Time Type Type Clinicians Facility Department ID 2022-12-10 2022-12-10 Telephone [facility] [id number] [facility] [place] [facility]00 [facility] 350.1.13.10 ity of [place] 4.2.7.2.686 Lonny as OBED?BLEA [id number] [address] MEDICAL OFFICE BUILDING 2022-12-07 2022-12-07 Outpatient [facility] [id number] Univers 09:00:00 09:42:46 WILEY barlowy o f [facility] 2022-12-07 2022-12-07 Urgent AramWiley pino [facility] 1.2.840 .114 [id number] Univers 09:00:00 09:42:46 Care Unknown, Attending [facility] 350.1.13.10 ity of [place] 4.2.7.2.686 [place] as OBED?BLEA [phone] [address] MEDICAL OFFICE BUILDING 2022-12-07 2022-12-07 Orders Doctor CHRISTINE [id number] [id number] Univers 00:00:00 00:00:00 Only Unassigned, JONNY 350.1.13.10 ity of [place] [facility] 4.2.7.2.686 Lonny as [id number] [facility] 009 Branch 2022-07-25 2022-07-25 Emergency X BREANNA, [facility] ERT [id number] Univers 09:47:00 11:56:00 FOLUSHO ity of [facility] 2022-07-25 2022-07-25 Emergency [facility] 1.2.840.114 [id number] Univers 09:47:00 11:56:00 Folusho F RUDY 350.1.13.10 ity of [place] 4.2.7.2.686 [facility] [id number] [facility] 084 Branch 2022-07-24 2022-07-24 Outpatient R RADIOLOGY [facility] [id number] Univers 09:59:25 23:59:00 ity of [facility] 2022-07-24 2022-07-24 Hospital Radiology [facility] 1.2.840.114 [id number] Univers 09:59:25 23:59:00 Encounter RUDY 350.1.13.10 [facility] 4.2.7.2.686 [facility] [phone] [facility] 807 Branch 2022-07-21 2022-07-21 Outpatient CHRETIEN_F [facility] [address] [place] 00:00:00 00:00:00 1017 [facility] 2022-02-28 2022-02-28 Orders Doctor CHRISTINE 1.2.840.114 [id number] Univers 00:00:00 00:00:00 Only Unassigned, JONNY 350.1.13.10 ity of [place] [facility] 4.2.7.2.686 Lonny as [id number] [facility] 009 Branch 2022-02-19 2022-02-19 Telephone Pedro [facility] 1.2.840.114 [id number] Univers 00:00:00 00:00:00 Alley [facility] 350.1.13.10 it y of [place] 4.2.7.2.686 [place] as OBED?BLEA [id number] [address] MEDICAL OFFICE BUILDING 2022-01-29 2022-01-29 Orders Doctor CHRISTINE 1.2.840.114 [id number] Univers 00:00:00 00:00:00 Only Unassigned, JONNY 350.1.13.10 ity of [place] [facility] 4.2.7.2.686 Lon[place] as [id number] [address] 2022-01-24 2022-01-24 Telephone [facility] 1.2.840.114 [id number] Univers 00:00:00 00:00:00 Alley Fang HEALTH 350.1.13.10 it y of [place] 4.2.7.2.686 [place] as OBED?BLEA [phone] [address] MEDICAL OFFICE BUILDING 2021-12-30 2021-12-30 Orders Doctor NANCI 1.2.840.114 [id number] Univers 00:00:00 00:00:00 Only Unassigned, JONNY 350.1.13.10 ity of [place] [facility] 4.2.7.2.686 Lonny as [id number] [address] 2021-12-27 2021-12-27 Telephone [facility] 1.2.840.114 [id number] Univers 00:00:00 00:00:00 Alley Fang HEALTH 350.1.13.10 it y of [place] 4.2.7.2.686 [place] as OBED?BLEA [id number] [address] MEDICAL OFFICE [facility] 2021-12-03 2021-12-03 Telephone [facility] 1.2.840.114 [id number] Univers 00:00:00 00:00:00 Alley Fang HEALTH 350.1.13.10 it y of [place] 4.2.7.2.686 Lon[place] as OBED?BLEA [id number] [facility] [address] [place] MEDICAL OFFICE BUILDING 2021-11-28 2021-11-28 [facility] [id number] Univers 09:25:00 23:59:00 ALLEY itrosalva of [facility] 2021-11-28 2021-11-28 Office [facility] [id number] Univers 09:30:00 12:14:10 Visit Alley Fang HEALTH 350.1.13.10 it y of [place] 4.2.7.2.686 [place] as OBED?BLEA [id number] Me dicellie [address] [address] [place] MEDICAL OFFICE [facility] 2021-11-28 2021-11-28 Outpatient [facility] [id number] Univers 09:25:00 09:25:00 ALLEY itrosalva [facility] 2021-11-14 2021-11-14 Orders Doctor NANCI 1.2.840.114 [id number] Univers 00:00:00 00:00:00 Only Unassigned, JONNY 350.1.13.10 ity of [place] [facility] 4.2.7.2.686 Lon[place] as [phone] [address] 2021-10-31 2021-10-31 Outpatient [facility] [id number] Univers 10:00:00 23:59:00 [facility] 2021-10-31 2021-10-31 Hospital [facility] 1.2.840.114 [id number] Univers 10:00:00 23:59:00 Encounter Alley Fang [facility] 350.1.13.10 ity of [place] 4.2.7.2.686 Lon[place] as OBED?BLEA [id number] Pa stephon [address] [place] MEDICAL OFFICE [facility] 2021-10-31 2021-10-31 Office [facility] [id number] Univers 09:30:00 10:32:19 Visit Alley Fang [facility] 350.1.13.10 it [facility] 4.2.7.2.686 [place] as OBED?BLEA [id number] Me dicellie [address] [place] MEDICAL OFFICE [facility] 2021-10-31 2021-10-31 Outpatient R [facility] [id number] Univers 09:30:00 10:32:19 ALLEY barlowrosalva [facility] 2021-10-02 2021-10-02 Patient Doctor [facility] 1.2.840.114 [id number] Univers 00:00:00 00:00:00 Secure Msg Unassigned, HEALTH 350.1.13.10 ity of [place] [facility] 4.2.7.2.686 [place] as OBED?BLEA [id number] Me dical KNEY [address] [place] MEDICAL OFFICE [facility] 2021-09-30 2021-09-30 Outpatient R [facility] [id number] Univers 16:10:00 23:59:00 ALLEY perdue [facility] 2021-09-30 2021-09-30 Hospital [facility] 1.2.840.114 [id number] Univers 16:10:00 23:59:00 Encounter Alley VELASQUEZ 350.1.13.10 ity of [place] 4.2.7.2.686 Lonny as OBED?BLEA [id number] Me stephon [place] [address] [facility] OFFICE [facility] 2021-09-30 2021-09-30 Office [facility] [id number] Univers 15:30:00 17:07:21 Visit Alley VELASQUEZ 350.1.13.10 it y of [place] 4.2.7.2.686 Lonny as OBED?BLEA [id number] Me stephon [place] [address] [facility] OFFICE [facility] 2021-09-30 2021-09-30 Outpatient R [facility] [id number] Univers 15:30:00 17:07:21 ALLEY rosalva [facility] 2021-09-27 2021-09-28 Emergency Noé Soliman [facility] 1.2.840.114 [id number] Univers 23:46:00 02:20:00 Anay [facility] 350.1.13.10 i ty of [place]2.7.2.686 [place] [id number] [facility] [address] [place] 2021-09-27 2021-09-28 Emergency X JANNY, Noé [facility] ERT [id number] Univers 23:46:00 02:20:00 ity [facility] 2021-09-27 2021-09-28 Emergency X JANNY, K [facility] ERT [id number] Univers 23:46:00 02:20:00 [facility] 2017-04-21 2017-04-21 Outpatient MHIE MHIE [id number] [place]oria 10:30:00 10:30:00 05 natalya Bah 2017-04-21 2017-04-21 Outpatient MHIE MHIE [id number] Memoria 10:30:00 10:30:00 05 natalya Olvin 2016-11-25 2016-11-25 Outpatient MHIE MHIE [id number] Memoria 10:30:00 10:30:00 04 natalya Olvin 2016-11-25 2016-11-25 Outpatient MHIE MHIE [id number] Memoria 10:30:00 10:30:00 04 natalya Olvin 2016-06-17 2016-06-17 Outpatient MHIE MHIE [id number] Memoria 10:45:00 10:45:00 03 natalya Olvin 2016-06-17 2016-06-17 Outpatient MHIE MHIE [id number] Memoria 10:45:00 10:45:00 03 natalya Olvin 2016-04-18 2016-04-18 Outpatient MHIE MHIE [id number] Memoria 10:45:00 10:45:00 02 natalya Olvin 2016-04-18 2016-04-18 Outpatient MHIE MHIE [id number] Memoria 10:45:00 10:45:00 02 natalya Olvin 2015-10-25 2015-10-25 Outpatient MHIE MHIE [id number] Memoria 10:45:00 10:45:00 01 natalya Olvin 2015-10-25 2015-10-25 Outpatient MHIE MHIE [id number] Memoria 10:45:00 10:45:00 01 natalya Bah 2015-06-14 2015-06-14 Outpatient MHIE MHIE [id number] Memoria 10:30:00 10:30:00 00 natalya Bah 2015-06-14 2015-06-14 Outpatient MHIE IE [id number] Memoria 10:30:00 10:30:00 00 natalya Bah Results Test Description Test Time Test Comments Results Result Comments Source POCT URINALYSIS W SPECIFIC GRAVITY 2022-12-07 15:17:00 Test Item Value Reference Range Interpretation Comme nts POCT U SP GRAV (test code = 3255) 1.005 mg/dl 1.005-1.025 POCT PH U (test code = 3254) 8 mg/dl 5-8 POCT U LEUK EST (test code = 3263) trace Negative - Negative POCT U NIT (test code = 3262) neg Negative - Negative POCT U PROT (test code = 3259) trace Negative - Negative POCT U GLU (test code = 3256) norm Negative - Negative POCT U KETONE (test code = 3258) neg Negative - Negative POCT U UROBILI (test code = 3260) norm 0.2-1 POCT U BILI (test code = 3261) neg Negative - Negative POCT U BLD (test code = 3257) neg Negative - Negative POCT U COLOR (test code = 3266) yellow POCT U APPEAR (test code = 3267) clear Lab Interpretation (test code = 98979-9) Normal [facility]
[2023-07-30] MEDS ORDERED: cloNIDine HCL 0.1 MG TAB PO PRN (19:34)
[2023-07-30 20:00] LABS: Absolute Lymphocytes (CBC) 1.6 K/uL (0.7-4.9); Hematocrit 41.3 % (36.0-45.0); Lymphocytes % 13.5 % (15.3-44.8); MCV 92.2 fL (80-100); MPV 11.7 fL (7.6-11.3); Platelets 139 thou/uL (152-406); RBC Red Blood Cell Count 4.48 M/uL (3.86-4.86)
[2023-07-30] MEDS ORDERED: cloNIDine HCL 0.1 MG TAB ONE (20:01)
[2023-07-30] MEDS ORDERED: ALPRAZOLAM 0.25 MG TABLET PO PRN (20:09)
[2023-07-30] MEDS ORDERED: ASPIRIN EC 81 MG TAB PO ONE (20:09)
[2023-07-30] MEDS ORDERED: AMLODIPINE 5 MG TAB PO ONE (20:13)
[2023-07-30 20:19] LABS: Albumin 3.8 g/dL (3.4-5.0); Bilirubin Total 0.5 mg/dL (0.2-1.0); Magnesium 2.6 mg/dL (1.6-2.4); Protein, Total 7.3 g/dL (6.4-8.2); Troponin High Sensitivity 8.4 pg/mL (<58.9)
[2023-07-30] MEDS ORDERED: METOPROLOL TAR 25 MG TAB PO SCH (21:00)
[2023-07-30] MEDS ORDERED: ATORVASTATIN 20 MG TAB PO SCH (21:00)
[2023-07-30] MEDS ORDERED: GABAPENTIN 300 MG CAP PO SCH (21:00)
--- NOTE | 2023-07-30 21:01 | RAD REPORT ---
EXAM DESCRIPTION: Chato Salinas (2 Views)07/30/2023 8:50 pm CLINICAL HISTORY: Chest pain COMPARISON: November 2022 FINDINGS: The lungs appear clear of acute infiltrate. The heart is normal size IMPRESSION: No acute abnormalities displayed
[2023-07-30] MEDS: HYDRALAZINE HCL 25 MG TABLET PO SCH (21:45)
[2023-07-30] MEDS ORDERED: METOPROLOL TAR 50 MG TAB PO SCH (22:02)
[2023-07-30 22:51] VITALS: BMI 28.3
[2023-07-31 03:54] LABS: Troponin High Sensitivity 8.4 pg/mL (<58.9)
[2023-07-31 04:43] VITALS: O2SAT 96
[2023-07-31] MEDS ORDERED: PANTOPRAZOLE 40MG TABLET PO SCH (06:30)
--- NOTE | 2023-07-31 08:17 | RAD REPORT ---
EXAM DESCRIPTION: US - Abdomen Pelvis Scan US - 07/31/2023 5:20 am CLINICAL HISTORY: High blood pressure Hypertension, R/O Renal artery Stenosis COMPARISON: No comparisons FINDINGS: The bilateral kidneys are normal in size, the right measuring 10.9 x 4.9 x 4.8 cm and the left measuring 10.3 x 5.5 x 4.1 cm. Mild dilatation of the right renal pelvis noted. Aortic velocity: 81 cm/second Right proximal renal artery: 107 cm/second Right mid renal artery: 67 cm/second Right distal renal artery: 54 cm/second Right renal arcuate artery resistive index: 0.8 Right renal artery / aorta ratio: 1.3 Left proximal renal artery: 75 cm/second Left mid renal artery: 61 cm/second Left distal renal artery: 38 cm/second Left renal arcuate artery resistive index: 0.8 Left renal artery/aorta ratio: 0.9 Normal waveforms demonstrated within the bilateral renal arteries. IMPRESSION: No evidence of hemodynamically significant stenosis within the bilateral renal arteries.
[2023-07-31] MEDS: HYDRALAZINE HCL 25 MG TABLET PO SCH (08:53)
[2023-07-31 08:58] VITALS: BP 167/74
[2023-07-31] MEDS ORDERED: LOSARTAN POTASSIUM 50 MG TABLET PO SCH (09:00)
[2023-07-31] MEDS ORDERED: ASPIRIN EC 81 MG TAB PO SCH (09:00)
[2023-07-31] MEDS ORDERED: CLOPIDOGREL 75 MG TABLET PO SCH (09:00)
[2023-07-31] MEDS ORDERED: SERTRALINE HCL 50 MG TAB PO SCH (09:00)
[2023-07-31] MEDS ORDERED: FUROSEMIDE 20 MG TABLET PO SCH (09:00)
[2023-07-31 09:05] VITALS: TEMP 97.6
--- NOTE | 2023-07-31 09:16 | DS ---
Date of Discharge: 07/31/2023 Disposition: Discharged to go home. Physical Examination: HEENT: Unremarkable. Lungs: Clear to auscultation. Heart: Sounds normal. Abdomen: Soft. Bowel sounds normal. No guarding, rigidity, tenderness, distention. Extremities: No leg edema. Discharge Medications And Instructions: Continue all prior home medications except following changes: 1. Start amlodipine 5 mg, take 1 tablet by mouth daily. 2. Start clonidine 0.1 mg, take 1 tablet by mouth 3 times a day as needed for systolic blood pressure higher than 160. 3. Change sertraline 25 mg, take 2 tablets by mouth daily. 4. Follow up at my office next week on Thursday. Laboratory Data: Today, lipid profile shows triglyceride 132, total cholesterol 75, LDL 11, HDL 38, troponin this morning was 8.4. Yesterday upon admission; sodium 130, potassium 4, chloride 97, bicarb 28, BUN 11, creatinine 1.18, glucose 115. Liver function tests unremarkable and troponin was 8.4 as well yesterday. CBC upon admission yesterday; white count 11.8, hemoglobin 14.1, platelets 139. Final Diagnoses: 1. Chest pain. 2. Uncontrolled hypertension. 3. Coronary artery disease. 4. Hyperlipidemia. 5. Carotid artery stenosis, bilateral. 6. Aortic stenosis with aortic regurgitation. 7. Type 2 diabetes mellitus. 8. Gastroesophageal reflux disease. 9. Diverticulosis. 10. Anxiety. 11. Right breast cancer. 12. Osteoporosis. Hospital Course: This was a 73-year-old pleasant female patient who came into office yesterday with her granddaughter with chest tightness and uncontrolled blood pressure problem. After she was evaluated, decision was made to admit her to the hospital. Her PA was ruled out by getting serial cardiac enzymes. EKG did not show any acute ST-T changes. After she was admitted to the hospital, her home medications were continued and we gave 1 dose of amlodipine 5 mg and clonidine for p.r.n. use was ordered. Upon admission to the hospital, her blood pressure was reported as 230/82 and subsequently her blood pressure came down to 198/79, and last night at 11 p.m., it was 131/62, and this morning at 4 a.m., it was 115/56. When I saw her this morning, she was feeling much better, happy, smiling, and had no complaints and I explained her about all the discharge instructions. Renal artery Doppler test was done early this morning, result is pending and I will follow up on that. If it comes back abnormal, she was advised that she will need to have a followup with senior writer for further evaluation of that. I have instructed her to call office on Thursday to schedule appointment to see me sometime next week for Thursday or and she was instructed to bring her home blood pressure readings as she will be taking it 3 times a day in order for her to use clonidine on a p.r.n. basis as prescribed. Details were discussed with the patient's daughter also who was today in room with her. KAMALJIT/DEVANG Voice ID: [id number] Report ID: [id number]
--- NOTE | 2023-07-31 15:44 | EKG ---
Test Date: 2023-07-30 Test Time: 20:12:00 Yarn Carrier: MARY MEASUREMENT RESULTS: Intervals: Rate: 86 WA: 158 QRSD: 82 QT: 420 QTc: 502 [place]: P: 54 WA: 158 QRS: -24 T: 25 INTERPRETIVE STATEMENTS: Sinus rhythm with frequent premature ventricular complexes Voltage criteria for left ventricular hypertrophy Prolonged QT Abnormal ECG Compared to ECG 11/20/2022 02:01:55 Ventricular premature complex(es) now present Prolonged QT interval now present Electronically Signed On 07-31-23 15:42:14 CDT by Dago Adams
--- NOTE | 2023-07-31 18:46 | HP ---
Date of Admission: 07/30/2023 Chief Complaint: Chest tightness and high blood pressure. History Of Present Illness: This is a 73-year-old very pleasant female patient who came into office today with her granddaughter with 2 days' history of chest tightness type of feeling and blood pressu re running higher than normal. Patient usually has a history of blood pressure going up at the offic e compared to how her blood pressure is at home. She has not checked her blood pressure on a daily b asis lately, but she says she checks it every few days or so and normally her systolic blood pressure is between 140 to 150, but as of yesterday, her blood pressure at home systolic blood pressure is 19 0 to 200 range along with feeling of this chest tightness. No shortness of breath. No nausea or vom iting. No headache. She takes her medications regularly. She called her senior policy associate's office erika blackwell requesting appointment and she could not see senior policy associate until sometime next week and then she trent led my office and was seen today for this problem, and after I evaluated her, she was admitted to the hospital. Allergies: NO KNOWN ALLERGIES. Medications: Alprazolam 0.25 mg at bedtime as needed for sleep, aspirin 81 mg daily, clopidogrel 75 mg daily, Caltrate plus D 1 tablet 2 times a day, Dexilant 60 mg 1 capsule daily, furosemide 20 mg da meli, gabapentin 300 mg daily at bedtime, hydralazine 50 mg 2 times a day, losartan 100 mg daily, barrera xicam 15 mg daily with food, metoprolol 50 mg takes 1-1/2 tablet 2 times a day, sertraline 25 mg kristin y, simvastatin 40 mg daily in the evening. Review of Systems: Cardiovascular: As mentioned above. All other systems reviewed and negative. Past Medical History: Significant for type 2 diabetes mellitus which is diet controlled, hypertensio n, hyperlipidemia, coronary artery disease, aortic stenosis with aortic regurgitation, carotid artery stenosis, gastroesophageal reflux disease, anxiety, diverticulosis, right breast cancer and osteopor osis. Past Surgical History: Had a right-sided mastectomy in 2005, coronary artery angioplasty with stent placement November of 2020, back surgery and surgery for heel spur. Family History: Father had diabetes, heart disease. Mother had breast cancer and heart disease. Si ster with diabetes. Social History: Negative for smoking. Use of alcohol, occasional. Physical Examination: Vital Signs: Her blood pressure at office was 200/100 with manual blood pressure machine, pulse 73, temperature 97.8, respiratory rate 16, weight 166.2 pounds, height 64 inches. General: Awake, alert, oriented, not in distress. HEENT: Head atraumatic, normocephalic. Conjunctivae nonerythematous. Sclerae white. Mouth, no thr ush or edema noted. Ears/Nose, no mass, lesion, discharge noted. Neck: Supple. No JVD, lymph nodes, bruit, thyromegaly noted. Lungs: Bilateral good equal air entry. Clear to auscultation. No rhonchi. No rales. Heart: Presence of systolic murmur. No gallop. Abdomen: Soft, bowel sounds normal. No guarding, rigidity, tenderness, mass, hepatosplenomegaly, dis tention, or bruit noted. Extremities: No leg edema. No calf tenderness. Skin: No rash, ulcer, cellulitis. Lymphatics: No lymph node enlargement in neck, supraclavicular, infraclavicular region. Neuro: No focal neurological deficit. Chest: Unremarkable. External Genitalia: Deferred. Rectal: Deferred. Laboratory Data: White count 11.8, hemoglobin 14.1, platelets 139. Sodium 130, potassium 4, chlorid e 97, bicarb 28, BUN 11, creatinine 1.18. Glucose 115. Liver function test normal. Troponin 8.4. Chest x-ray, no acute cardiopulmonary changes. EKG, normal sinus rhythm. No acute ST-T changes. Impression: 1.Chest pain. 2.Hypertension, uncontrolled. 3.Coronary artery disease. 4.Hyperlipidemia. 5.Carotid artery stenosis, bilateral. 6.Aortic stenosis with aortic regurgitation. 7.Gastroesophageal reflux disease. 8.Diverticulosis. 9.Right breast cancer. 10.Osteoporosis. 11.Anxiety. Plan: We will go ahead and admit the patient to hospital for further evaluation and management of th is problem. The patient was admitted to the hospital, was given 1 dose of amlodipine and clonidine 0 .1 mg every 6 hours as needed for systolic blood pressure higher than 160 was ordered. We will heber nue her home medications for blood pressure. We will monitor blood pressure overnight and make neces kevin adjustment on medication tomorrow morning depending on how she responds to this initial changes in the medications. For her cholesterol, we will continue her statin therapy. For anxiety, she take s sertraline and I will consider to increase the dose from 25 to 50 mg daily as she is appearing extr carola anxious today. We will continue her aspirin and clopidogrel. Get cardiac enzymes tomorrow luna wilkersong again with fasting lipid profile, and details and plan of treatment discussed with her and her g randdaughter who was in room with her. We will get a renal artery Doppler done tomorrow morning to r ule out any possibility of renal artery stenosis. KAMALJIT/MODL Voice ID: [id number]
== END 2023-07-31 09:51 | disposition home or self-care (01) ==
LOC: 2ND 19:17
PROVIDERS: ADMIT Internal Medicine; ATTEND Internal Medicine
DX: R07.9 Chest pain, unspecified (principal); I10 Essential (primary) hypertension; I25.10 Atherosclerotic heart disease of native coronary artery without angina pectoris; E78.5 Hyperlipidemia, unspecified; I65.29 Occlusion and stenosis of unspecified carotid artery; K21.9 Gastro-esophageal reflux disease without esophagitis; K57.90 Diverticulosis of intestine, part unspecified, without perforation or abscess without bleeding; C50.911 Malignant neoplasm of unspecified site of right female breast; M81.0 Age-related osteoporosis without current pathological fracture; F41.9 Anxiety disorder, unspecified
CPT/HCPCS: 93005; 85025; 36415; 83735; 80061; 84484 ×2; 80053; 71046; 93975; G0379; G0378 ×2